=== PATIENT | male | born 1995 | race Caucasian/White ===

== ENCOUNTER 2017-06-23 16:28 | Emergency (ER) | payer OTHER ==
[~2017-06-23] VITALS: Ht 182.9 cm; Wt 100.0 kg
[2017-06-23 16:29] VITALS: BP 153/90; PULSE 104; RESP 20; TEMP 98.4; O2SAT 98
[2017-06-23] MEDS ORDERED: DICL75TA PO (18:21)
[2017-06-23] MEDS ORDERED: ROBA500T PO (18:21)
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
== END 2017-06-23 18:44 | disposition home or self-care (01) ==
LOC: NEPK 16:28
DX: S13.4XXA Sprain of ligaments of cervical spine, initial encounter (principal); V49.40XA Driver injured in collision with unspecified motor vehicles in traffic accident, initial encounter
CPT/HCPCS: 99283